=== PATIENT | female | born 1975 | race American Indian/Alaskan Native ===

== ENCOUNTER 2022-04-27 09:50 | Emergency (ER) | payer SELFPAY ==
[2022-04-27] MEDS ORDERED: LORazepam 2 MG/ML VIAL ONE (11:02)
== END 2022-04-27 11:10 | disposition left against medical advice (07) ==
LOC: ED 09:50
DX: R05.9 Cough, unspecified (principal); Z53.21 Procedure and treatment not carried out due to patient leaving prior to being seen by health care provider
CPT/HCPCS: J2060